=== PATIENT | male | born 1940 | race Caucasian/White ===

== ENCOUNTER → 2017-02-08 | Outpatient (CLI) | payer MEDICARE, BC ==
--- NOTE | 2017-02-08 12:23 | RADIOLOGY REPORT (SQ) ---
EXAM DESCRIPTION: U/S RETROPERITON (RENAL/AORTA) COMPLETED DATE/TIME: 02/08/2017 11:35 am REASON FOR STUDY: CHRONIC KIDNEY DISEASE STAGE 3 N18.3 CHRONIC KIDNEY DISEASE, STAGE 3 (MODERATE) COMPARISON: None. TECHNIQUE: Dynamic and static grayscale images acquired of the kidneys and bladder and recorded on P ACS. Additional selected color Doppler and spectral images recorded. LIMITATIONS: None. FINDINGS: RIGHT KIDNEY: 11.2 cm in length Normal echogenicity. No solid or suspicious masses. 2 small renal cysts are identified 1 measuring 3.1 x 2.6 x 2.7 cm in diameters and a 2nd measuring 2. 1 x 1.8 x 1.8 cm in diameters. No hydronephrosis. No calcifications. LEFT KIDNEY: 10.9 cm in length. Normal echogenicity. No solid or suspicious masses. 2 small [place] al cysts are identified with 1 measuring 2.9 x 2.8 x 2.7 cm in diameters and a 2nd measuring 1.8 x 1. 5 x 1.6 cm in diameters. No hydronephrosis. No calcifications. BLADDER: No masses. OTHER FINDINGS: No other significant finding. IMPRESSION: Small bilateral renal cysts. No other significant renal abnormalities were identified. TECHNICAL DOCUMENTATION: JOB ID: [id number] [employer]- All Rights Reserved
== END ==
LOC: RAD 10:41
PROVIDERS: ATTEND Internal Medicine Nephrology
DX: N18.3 Chronic kidney disease, stage 3 (moderate) (principal); R80.9 Proteinuria, unspecified; E55.9 Vitamin D deficiency, unspecified; N28.1 Cyst of kidney, acquired
CPT/HCPCS: 76770

== ENCOUNTER → 2017-02-09 | Outpatient (CLI) | payer MEDICARE, BC ==
[2017-02-09 14:47] LABS: ANION GAP 9 (5-19); BLOOD UREA NITROGEN 24 mg/dL (7-20); CALCIUM 9.3 mg/dL (8.4-10.2); CARBON DIOXIDE 24 mmol/L (22-30); CHLORIDE 103 mmol/L (98-107); GLUCOSE 86 mg/dL (75-110); PHOSPHORUS 3.9 mg/dL (2.5-4.5); POTASSIUM 4.7 mmol/L (3.6-5.0)
[2017-02-09 14:50] LABS: URINE PROTEIN 94.6 mg/dL (<12)
[2017-02-09 15:07] LABS: URINE CREATININE 94.2 mg/dL (22-328)
[2017-02-09 15:08] LABS: CREATININE 1.3 mg/dL (0.52-1.25)
[2017-02-12 14:53] LABS: VITAMIN D 25-HYDROXY 33.1 ng/mL (30.0-100.0)
== END ==
LOC: OD 12:31
PROVIDERS: ATTEND Internal Medicine Nephrology
DX: N18.3 Chronic kidney disease, stage 3 (moderate) (principal); R80.9 Proteinuria, unspecified; E55.9 Vitamin D deficiency, unspecified
CPT/HCPCS: 36415; 80048; 82306; 82575; 83970; 84100; 84156

== ENCOUNTER → 2017-04-23 | Outpatient (CLI) | payer MEDICARE, BC ==
[2017-04-23 11:48] LABS: URINE CREATININE 155.4 mg/dL (22-328); URINE PROTEIN 112.5 mg/dL (<12)
[2017-04-23 11:50] LABS: ANION GAP 7 (5-19); BLOOD UREA NITROGEN 23 mg/dL (7-20); CALCIUM 9.6 mg/dL (8.4-10.2); CARBON DIOXIDE 31 mmol/L (22-30); CHLORIDE 104 mmol/L (98-107); CREATININE RESULT 1.45 mg/dL (0.52-1.25); GLUCOSE 102 mg/dL (75-110); POTASSIUM 4.8 mmol/L (3.6-5.0); SODIUM 142.4 mmol/L (137-145)
== END ==
LOC: OD 10:12
PROVIDERS: ATTEND Internal Medicine Nephrology
DX: N18.3 Chronic kidney disease, stage 3 (moderate) (principal); R80.9 Proteinuria, unspecified
CPT/HCPCS: 36415; 80048; 82570; 84156

== ENCOUNTER → 2017-07-27 | Outpatient (CLI) | payer MEDICARE, BC ==
[2017-07-27 09:45] LABS: ABSOLUTE EOSINOPHILS # (AUTO) 0.1 10^3/uL (0.0-0.6); ABSOLUTE LYMPHOCYTES (AUTO) 0.8 10^3/uL (0.5-4.7); ABSOLUTE MONOCYTES (AUTO) 0.5 10^3/uL (0.1-1.4); BASOPHILS % (AUTO) 0.5 % (0-2); EOSINOPHILS % (AUTO) 2.1 % (0-6); HEMOGLOBIN 16.5 g/dL (13.5-17.0); LYMPHOCYTES % (AUTO) 13.9 % (13-45); MEAN CORPUSCULAR HEMOGLOBIN 30.8 pg (27.0-33.4); MEAN CORPUSCULAR HGB CONC 33.7 g/dL (32.0-36.0); MEAN CORPUSCULAR VOLUME 91 fl (80-97); PLATELET COUNT 153 10^3/uL (150-450); RED BLOOD COUNT 5.37 10^6/uL (4.35-5.55); SEGMENTED NEUTROPHILS % (AUTO) 73.5 % (42-78); TOTAL CELLS COUNTED % (AUTO) 100 %; WHITE BLOOD COUNT 5.4 10^3/uL (4.0-10.5)
[2017-07-27 10:07] LABS: ANION GAP 9 (5-19); BLOOD UREA NITROGEN 21 mg/dL (7-20); CALCIUM 9.8 mg/dL (8.4-10.2); CARBON DIOXIDE 28 mmol/L (22-30); CHLORIDE 104 mmol/L (98-107); GLUCOSE 110 mg/dL (75-110); POTASSIUM 4.3 mmol/L (3.6-5.0); SODIUM 140.8 mmol/L (137-145)
[2017-07-27 10:12] LABS: UR PRO/CREAT RATIO RESULT 0.5 mg/mg (0.0-0.2); URINE CREATININE 170.9 mg/dL (22-328); URINE PROTEIN 83.2 mg/dL (<12)
== END ==
LOC: OD 09:10
PROVIDERS: ATTEND Internal Medicine Nephrology
DX: N18.3 Chronic kidney disease, stage 3 (moderate) (principal); E55.9 Vitamin D deficiency, unspecified
CPT/HCPCS: 36415; 80048; 82306; 82570; 83970; 84156; 85025

== ENCOUNTER → 2019-03-11 | Outpatient (CLI) | payer BC, MEDICARE, OTHER | LOC: RAD 18:34 | PROVIDERS: ATTEND Internal Medicine | DX: C34.32 Malignant neoplasm of lower lobe, left bronchus or lung (principal); Z53.8 Procedure and treatment not carried out for other reasons ==